=== PATIENT | female | born 1995 | race Two or more races ===

== ENCOUNTER 2025-06-18 08:15 | Emergency (ER) | payer MEDICAID ==
[~2025-06-18] VITALS: Ht 170.2 cm; Wt 81.8 kg
[2025-06-18 08:26] VITALS: TEMP 98.2
[2025-06-18 08:55] LABS: PLATELET COUNT (AUTO) 313 K/uL (150-450); RED BLOOD CELL COUNT(AUTO) 4.37 MIL/uL (4.00-5.20); RED CELL DISTRIBUTION WIDTH 13.4 % (11.5-14.5); WHITE BLOOD COUNT (AUTO) 8.1 K/uL (4.5-11.0)
[2025-06-18 09:05] LABS: CALCIUM, TOTAL 9.3 mg/dL (8.8-10.5); CREATININE 0.80 mg/dL (0.60-1.30); GLOMERULAR FILTR. RATE CALC > 60 mL/min (>60); GLUCOSE,RANDOM 95 mg/dL (70-110); SODIUM SERUM 137 mmol/L (136-145); UREA NITROGEN, BLOOD 11 mg/dL (7-18)
[2025-06-18 09:27] LABS: ASPARTATE AMINOTRANSFERASE 19.0 U/L (15-37); HCG,QUANTITATIVE 2.0 mIU/mL (0-6); TOTAL PROTEIN, SERUM 8.0 g/dL (6.4-8.2)
[2025-06-18 10:05] LABS: APPEARANCE,URINE CLEAR (CLEAR); GLUCOSE, URINE (UA) NEGATIVE (NEGATIVE); LEUKOCYTE ESTERASE ,URINE NEGATIVE (NEGATIVE); NITRATE,URINE POSITIVE (NEGATIVE); OCCULT BLOOD,URINE NEGATIVE (NEGATIVE); SPECIFIC GRAVITIY, URINE 1.024 (1.003-1.030)
[2025-06-18 10:16] LABS: SQUAMOUS EPITHELIAL CELL,UR Moderate /LPF (None Seen)
[2025-06-18] MEDS: SODIUM CHLORIDE 0.9% 1,000 ML IV ONE (10:22)
[2025-06-18 12:00] VITALS: BP 127/71; PULSE 68; RESP 17; O2SAT 99
[2025-06-18] MEDS ORDERED: FAMO20 PO (12:43)
[2025-06-18] MEDS ORDERED: CEPH-558 PO (12:43)
== END 2025-06-18 13:03 | disposition home or self-care (01) ==
LOC: EMS 08:15
DX: R82.81 Pyuria (principal); R10.21 Pelvic and perineal pain right side
CPT/HCPCS: 99283; 96360; 80048; 80076; 81001; 82150; 83690; 84702; 85025; 87077; 87086; 36415; J7030; 87186